=== PATIENT | male | born 1980 | race Caucasian/White ===

== ENCOUNTER 2016-11-29 18:21 | Emergency (ER) | payer BC ==
[2016-11-29 18:27] VITALS: BP 124/86; PULSE 83; RESP 18; TEMP 97.8
[2016-11-29] MEDS ORDERED: ORPHENADRINE 30 MG/ML 2 ML VIAL IM STA (18:56)
[2016-11-29] MEDS ORDERED: KETOROLAC 60 MG/2 ML VIAL IM STA (18:56)
--- NOTE | 2016-11-29 19:07 | ED ---
General Adult HPI - General Chief complaint: Back Pain/Injury Stated complaint: Back Pain, back spasms Time Seen by Provider: 11/29/16 18:50 Source: patient, RN notes reviewed Mode of arrival: ambulatory Limitations: no limitations - History of Present Illness Initial comments: 36 -year-old male presents to the emergency department with a chief complaint Back pain. Patient states he has a history of back pain. Patient states that once a year spasm. It will become tight when he is walking. Patient denies any falls traumas or injuries. Patient states his doctor, get some cortisone injection and feels better. Patient was concerned due to his symptoms without that he should be evaluated. There has been no other symptoms in the patient. Patient denies any loss of bowel or bladder function. Patient states much like his typical back spasm.Patient denies any recent fever, chills, shortness of breath, chest pain, abdominal pain, nausea vomiting, numbness or tingling, dysuria or hematuria, constipation or diarrhea, headaches or visual changes, or any other current symptoms. - Related Data Previous Rx's Medication Instructions Recorded Ibuprofen [Motrin] 600 mg PO Q6HR PRN #20 tab 11/29/16 Orphenadrine [Norflex] 100 mg PO Q12H #10 tablet.er 11/29/16 Allergies Allergy/AdvReac Type Severity Reaction Status Date / Time No Known Allergies Allergy Verified 11/29/16 18:33 Review of Systems ROS Statement: Those systems with pertinent positive or pertinent negative responses have been documented in the HPI. ROS Other: All systems not noted in ROS Statement are negative. Past Medical History Past Medical History: No Reported History History of Any Multi-Drug Resistant Organisms: None Reported Past Surgical History: Orthopedic Surgery Past Psychological History: No Psychological Hx Reported Smoking Status: Current every day smoker Past Alcohol Use History: Occasional Past Drug Use History: None Reported General Exam Limitations: no limitations General appearance: alert, in no apparent distress ENT exam: Present: normal exam, mucous membranes moist Respiratory exam: Present: normal lung sounds bilaterally. Absent: respiratory distress, wheezes, rales, rhonchi, stridor Cardiovascular Exam: Present: regular rate, normal rhythm, normal heart sounds. Absent: systolic murmur, diastolic murmur, rubs, gallop, clicks Extremities exam: Present: normal inspection, full ROM, normal capillary refill. Absent: tenderness, pedal edema, joint swelling, calf tenderness Back exam: Present: normal inspection, full ROM, muscle spasm (paraspinal). Absent: tenderness Neurological exam: Present: alert, oriented X3, reflexes normal. Absent: motor sensory deficit Psychiatric exam: Present: normal affect, normal mood Skin exam: Present: warm, dry, intact, normal color. Absent: rash Course Vital Signs 11/29/16 18:24 Temperature 97.8 F Pulse Rate 83 Respiratory 18 Rate Blood Pressure 124/86 O2 Sat by Pulse 97 Oximetry Medical Decision Making - Medical Decision Making 36-year-old male presents to the emergency department with a chief complaint of lumbar strain. This was a patient on muscle relaxers and anti-inflammatories for home. Discussed follow-up with his doctor. Discussed return parameters all his questions. He stated the Meng is given plan. All questions have been answered. He will be discharged. Disposition Clinical Impression: Lumbar strain Disposition: HOME SELF-CARE Condition: Stable Instructions: Low Back Strain (ED), Lower Back Exercises (ED) Additional Instructions: Please use medication as discussed. Please follow up with family doctor if symptoms have not improved over the next two days. Please return to the emergency room if your symptoms increase or worsen or for any other concerns. Prescriptions: Ibuprofen [Motrin] 600 mg PO Q6HR PRN #20 tab PRN Reason: Pain Orphenadrine [Norflex] 100 mg PO Q12H #10 tablet.er Referrals: Teodora Mendoza MD [STAFF PHYSICIAN] - 1-2 days Time of Disposition: 19:06
== END 2016-11-29 19:25 | disposition home or self-care (01) ==
LOC: EC 18:21
DX: S39.012A Strain of muscle, fascia and tendon of lower back, initial encounter (principal); F17.200 Nicotine dependence, unspecified, uncomplicated
CPT/HCPCS: 99283; 96372 ×2; J2360; J1885

== ENCOUNTER 2017-07-01 21:51 | Emergency (ER) | payer BC, OTHER ==
[2017-07-01 22:02] VITALS: RESP 18
[2017-07-01] MEDS ORDERED: diphenhydrAMINE 50 MG/ML 1 ML VIAL IVP STA (22:43)
[2017-07-01] MEDS ORDERED: SODIUM CHLORIDE 0.9% 1,000 ML IV STA ×2 (22:43→22:44)
[2017-07-01] MEDS ORDERED: RX INFO: IV CONTRAST WAS GIVEN 1 EACH MISC MISCELLANE PRN (22:43)
[2017-07-01] MEDS ORDERED: METOCLOPRAMIDE 5 MG/ML 2 ML VIAL IVP STA (22:43)
[2017-07-01 22:55] LABS: Basophils % (A) 0 %; Eosinophils # (A) 0.2 k/uL (0-0.7); Eosinophils % (A) 2 %; HCT 47.1 % (39.0-53.0); HGB 16.4 gm/dL (13.0-17.5); Lymphocytes # (A) 4.1 k/uL (1.0-4.8); Lymphocytes % (A) 48 %; MCH 30.6 pg (25.0-35.0); MCHC 34.9 g/dL (31.0-37.0); MCV 87.7 fL (80.0-100.0); Mean Platelet Volume 7.5; Monocytes # (A) 0.5 k/uL (0-1.0); Monocytes % (A) 6 %; Neutrophils # (A) 3.8 k/uL (1.3-7.7); Neutrophils % (A) 43 %; Platelet Count 423 k/uL (150-450); RBC 5.36 m/uL (4.30-5.90); RDW 12.8 % (11.5-15.5); WBC 8.7 k/uL (3.8-10.6)
[2017-07-01 23:03] LABS: Partial Thromboplastin Time 25.4 sec (22.0-30.0)
[2017-07-01 23:04] LABS: ALT 46 U/L (21-72); AST 27 U/L (17-59); Albumin 3.8 g/dL (3.5-5.0); Alkaline Phosphatase 56 U/L (38-126); Anion Gap 13 mmol/L; Blood Urea Nitrogen 14 mg/dL (9-20); Calcium 9.1 mg/dL (8.4-10.2); Carbon Dioxide 22 mmol/L (22-30); Chloride 103 mmol/L (98-107); Glucose 118 mg/dL (74-99); Magnesium 1.8 mg/dL (1.6-2.3); Potassium 4.4 mmol/L (3.5-5.1); Sodium 138 mmol/L (137-145); Total Bilirubin 0.3 mg/dL (0.2-1.3); Total Protein 6.2 g/dL (6.3-8.2)
--- NOTE | 2017-07-01 23:04 | XR ---
EXAMINATION TYPE: XR chest 2V DATE OF EXAM: 07/01/2017 COMPARISON: NONE HISTORY: Headache TECHNIQUE: Frontal and lateral views of the chest are obtained. FINDINGS: Heart and mediastinum are normal. Lungs are clear. Diaphragm is normal. Bony thorax is int act. IMPRESSION: Normal chest.
--- NOTE | 2017-07-01 23:18 | CT ---
EXAMINATION TYPE: CT angio head DATE OF EXAM: 07/01/2017 11:09 PM COMPARISON: NONE HISTORY: Headache CT DLP: 1305.50 mGycm Automated exposure control for dose reduction was used. TECHNIQUE: Performed with IV Contrast, patient injected with 100 mL of Isovue 370. There are 3-D post processed images.. FINDINGS: There is arterial flow in the anterior middle and posterior cerebral arteries. There is arterial flow in the vertebrobasilar artery system. The vertebral arteries are symmetric. I see no evidence of ane urysm or neovascularity. There is no evidence of spasm. There is no mass effect. IMPRESSION: NORMAL CT ANGIOGRAM OF THE BRAIN.
[2017-07-01 23:26] LABS: Creatine Kinase 72 U/L (55-170)
[2017-07-01 23:39] LABS: Creatine Kinase MB 0.9 ng/mL (0.0-2.4); Troponin I <0.012 ng/mL (0.000-0.034)
[2017-07-01] MEDS ORDERED: KETOROLAC 30 MG/ML 1 ML VIAL IVP STA (23:51)
[2017-07-01] MEDS ORDERED: LORazepam 2 MG/ML INJ IV STA (23:52)
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
[2017-07-02 00:08] VITALS: BP 130/93; PULSE 87
[2017-07-02 00:20] LABS: Appearance,Urine Clear (Clear); Bilirubin,Urine Negative (Negative); Blood,Urine Negative (Negative); Color,Urine Yellow; Glucose,Urine (UA) Negative (Negative); Ketones,Urine Negative (Negative); Leukocyte Esterase,Urine Negative (Negative); Nitrite,Urine Negative (Negative); PH, Urine 5.5 (5.0-8.0); Protein,Urine Negative (Negative); Urobilinogen,Urine <2.0 mg/dL (<2.0)
[2017-07-02 00:23] VITALS: TEMP 98
[2017-07-02 00:29] LABS: Amphetamine Screen,Urine Not Detected (NotDetected); Barbiturate Screen,Urine Not Detected (NotDetected); Benzodiazepines Screen,Urine Not Detected (NotDetected); Cocaine Screen,Urine Not Detected (NotDetected); Methadone Screen, Urine Not Detected (NotDetected); Opiate Screen,Urine Not Detected (NotDetected); Oxycodone Screen, Urine Not Detected (NotDetected); Phencyclidine Screen,Urine Not Detected (NotDetected); Tricyclic Antidepressant,Urine Not Detected (NotDetected); Urn Cannabinoid Scrn Not Detected (NotDetected)
[2017-07-02 00:36] LABS: Specific Gravity,Urine >1.050 (1.001-1.035)
== END 2017-07-02 00:27 | disposition home or self-care (01) ==
LOC: EC 21:51
DX: R51 Headache (principal); I10 Essential (primary) hypertension; F17.200 Nicotine dependence, unspecified, uncomplicated
CPT/HCPCS: 99285 ×2; 96374 ×2; 96375 ×4; 96361 ×2; 36415; 93005; 80053; 82550; 82553; 83735; 84484; 85025; 85610; 85730; 81003; 80306; 71046; 70496; J2060; J1200; J2765; J1885; Q9967

== ENCOUNTER 2017-12-02 13:18 | Emergency (ER) | payer OTHER ==
[2017-12-02 13:46] VITALS: TEMP 98.2
[2017-12-02] MEDS ORDERED: ORPHENADRINE 30 MG/ML 2 ML VIAL IM STA (14:28)
[2017-12-02] MEDS ORDERED: KETOROLAC 60 MG/2 ML VIAL IM STA (14:28)
--- NOTE | 2017-12-02 14:42 | ED ---
Back Pain HPI - General Chief Complaint: Back Pain/Injury Stated Complaint: back pain Time Seen by Provider: 12/02/17 13:54 Source: patient, RN notes reviewed, old records reviewed Limitations: no limitations - History of Present Illness Initial Comments: Patient is a 37 year old male with CC of R shoulder muscle spasm and back pain today, and history of lumbar back spasm yesterday. He reports that he has been taking ibuprofen with heat with little relief of the pain. 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 He reports no saddle or peripheral paresthesias. No falls or trauma to cause pain. Denies history of twisting or one movment to cause the pain. He has had back spasm before. - Related Data Home Medications Medication Instructions Recorded Confirmed Flexeril Unknown Dose 1 tab PO DAILY PRN 12/02/17 12/02/17 Previous Rx's Medication Instructions Recorded Cyclobenzaprine [Flexeril] 10 mg PO TID #20 tab 12/02/17 Dexamethasone 0.75 mg PO DAILY #12 tab 12/02/17 Ibuprofen 600 mg PO TID #20 tablet 12/02/17 Lidocaine 5% Patch [Lidoderm 5% 1 patch TOPICAL DAILY #10 patch 12/02/17 Patch] Allergies Allergy/AdvReac Type Severity Reaction Status Date / Time No Known Allergies Allergy Verified 12/02/17 14:11 Review of Systems ROS Statement: Those systems with pertinent positive or pertinent negative responses have been documented in the HPI. ROS Other: All systems not noted in ROS Statement are negative. Past Medical History Past Medical History: Hypertension History of Any Multi-Drug Resistant Organisms: None Reported Past Surgical History: Orthopedic Surgery Past Psychological History: No Psychological Hx Reported Smoking Status: Current every day smoker Past Alcohol Use History: Occasional Past Drug Use History: None Reported General Exam - General Exam Comments Initial Comments: Well appearing 37 year old male, no distress. Limitations: no limitations General appearance: alert, in no apparent distress Head exam: Present: atraumatic, normocephalic, normal inspection Eye exam: Present: normal appearance, PERRL, EOMI. Absent: scleral icterus, conjunctival injection, periorbital swelling ENT exam: Present: normal exam, mucous membranes moist Neck exam: Present: normal inspection. Absent: tenderness, meningismus, lymphadenopathy Cardiovascular Exam: Present: regular rate, normal rhythm, normal heart sounds. Absent: systolic murmur, diastolic murmur, rubs, gallop, clicks GI/Abdominal exam: Present: soft, normal bowel sounds. Absent: distended, tenderness, guarding, rebound, rigid Extremities exam: Present: normal inspection, full ROM, normal capillary refill. Absent: tenderness, pedal edema, joint swelling, calf tenderness Back exam: Present: normal inspection, muscle spasm (R cervical and trapezius muscle spasm) Neurological exam: Present: alert, oriented X3, CN II-XII intact Psychiatric exam: Present: normal affect, normal mood Skin exam: Present: warm, dry, intact, normal color. Absent: rash Course Vital Signs 12/02/17 12/02/17 13:44 15:23 Temperature 98.2 F Pulse Rate 99 104 H Respiratory 20 18 Rate Blood Pressure 124/78 128/40 O2 Sat by Pulse 98 99 Oximetry Medical Decision Making - Medical Decision Making 37 year old male with R neck and back muscle spasm and recent history of lumbar back pain presents to ED today for pain relief. He appears in no acute distress. Denies paresthesia. Patient is tender over cervical R paraspinal muscle and trapezius. Patient has no lumbar pain at this time, but reports it was severe a few days ago. At this time lumbar and cervical spine Xray are negative for fracture or significant disease. Patient given IM toradol, nofrlex. Discussed ibupprofen, lidocaine patch. Discussed close follow up with PCP and orthopedic if symptoms persist. Dsicussed return parameters. - Radiology Data Radiology results: report reviewed Lumbar spine x-rays negative for any acute process. Cervical spine satisfactorily without a fracture. Prevertebral soft tissue. C1 -C2 articulation slightly suboptimal due to overlap. Overlying soft tissue is unremarkable. Disposition Clinical Impression: Back spasm Disposition: HOME SELF-CARE Condition: Good Instructions: Muscle Spasm (ED) Additional Instructions: Patient has follow with primary care physician. Lisa alternate heat and ice. Take the muscle relaxers and steroid prescription to telemetry medicine as prescribed. Return to emergency department if any alarming signs or symptoms occur. Prescriptions: Cyclobenzaprine [Flexeril] 10 mg PO TID #20 tab Dexamethasone 0.75 mg PO DAILY #12 tab Ibuprofen 600 mg PO TID #20 tablet Lidocaine 5% Patch [Lidoderm 5% Patch] 1 patch TOPICAL DAILY #10 patch Is patient prescribed a controlled substance at d/c from ED?: No Referrals: None,Stated [Primary Care Provider] - 1-2 days Agnieszka Tello MD [STAFF PHYSICIAN] - 1-2 days Time of Disposition: 15:06
--- NOTE | 2017-12-02 14:55 | XR ---
EXAMINATION TYPE: XR lumbar spine 2 or 3V DATE OF EXAM: 12/02/2017 CLINICAL HISTORY: Low back pain TECHNIQUE: Frontal and lateral images of the lumbar spine are obtained. COMPARISON: None FINDINGS: There are 5 lumbar type vertebral bodies identified. The lumbar spine shows satisfactory alignment without evidence of acute fracture or dislocation. Vertebral body heights and disk space he ights are within normal limits. The overlying soft tissue appears unremarkable. IMPRESSION: Unremarkable study.
--- NOTE | 2017-12-02 15:02 | XR ---
EXAMINATION TYPE: XR cervical spine limited DATE OF EXAM: 12/02/2017 TECHNIQUE: Frontal, lateral, and open mouth view of the cervical spine are obtained. HISTORY: Pain COMPARISON: None FINDINGS: The cervical spine is visualized in its entirety from C1 thru the top of T1 level, it is s atisfactory in alignment without evidence of acute fracture or dislocation. The pre-vertebral soft t issue appears within normal limits. The C1-C2 articulation is slightly suboptimally evaluated due to teeth overlap but is likely within normal limits. Vertebral body heights and disc space heights are maintained. Overlying soft tissue is unremarkable. IMPRESSION: Fairly unremarkable study.
[2017-12-02 15:24] VITALS: BP 128/40; PULSE 104; RESP 18
== END 2017-12-02 15:24 | disposition home or self-care (01) ==
LOC: EC 13:18
DX: M62.830 Muscle spasm of back (principal); F17.200 Nicotine dependence, unspecified, uncomplicated
CPT/HCPCS: 99284; 96372 ×2; 72040; 72100; J2360; J1885; 99283

== ENCOUNTER 2018-10-01 18:14 | Emergency (ER) | payer OTHER ==
[2018-10-01 18:24] VITALS: RESP 16; TEMP 98.2
[2018-10-01] MEDS ORDERED: SODIUM CHLORIDE 0.9% 1,000 ML IV STA (18:46)
--- NOTE | 2018-10-01 18:59 | ED ---
General Adult HPI - General Chief complaint: Abdominal Pain Stated complaint: Groin pain Time Seen by Provider: 10/01/18 18:28 Source: patient, family, RN notes reviewed Mode of arrival: ambulatory Limitations: no limitations - History of Present Illness Initial comments: 38-year-old male presents to the emergency department for a chief complaint of testicular pain. Patient states he has had left testicular pain for about a month. States it is very tender to the touch. Denies dysuria. Denies pus. Patient states he has sharp pain radiating up from the left testicle to the left lower abdomen. States he thinks the upper left side of his abdomen may be somewhat bloated. States he noticed this yesterday but denies any pain in that area. Denies fevers or chills. Denies vomiting. States he is passing normal bowel movements.Patient has no other complaints at this time including shortness of breath, chest pain, nausea or vomiting, headache, or visual changes. - Related Data Home Medications Medication Instructions Recorded Confirmed Omeprazole 20 mg PO DAILY 10/01/18 10/01/18 Previous Rx's Medication Instructions Recorded Levofloxacin [Levaquin] 500 mg PO DAILY #10 tab 10/01/18 Allergies Allergy/AdvReac Type Severity Reaction Status Date / Time bee venom protein (honey bee) Allergy Swelling Verified 10/01/18 18:24 Review of Systems ROS Statement: Those systems with pertinent positive or pertinent negative responses have been documented in the HPI. ROS Other: All systems not noted in ROS Statement are negative. Past Medical History Past Medical History: Hypertension History of Any Multi-Drug Resistant Organisms: None Reported Past Surgical History: Orthopedic Surgery Past Psychological History: No Psychological Hx Reported Smoking Status: Current every day smoker Past Alcohol Use History: Occasional Past Drug Use History: None Reported General Exam Limitations: no limitations General appearance: alert, in no apparent distress Head exam: Present: atraumatic, normocephalic, normal inspection Eye exam: Present: normal appearance, PERRL, EOMI. Absent: scleral icterus, conjunctival injection, periorbital swelling ENT exam: Present: normal exam, mucous membranes moist Neck exam: Present: normal inspection, full ROM. Absent: tenderness, meningismus, lymphadenopathy Respiratory exam: Present: normal lung sounds bilaterally. Absent: respiratory distress, wheezes, rales, rhonchi, stridor Cardiovascular Exam: Present: regular rate, normal rhythm, normal heart sounds. Absent: systolic murmur, diastolic murmur, rubs, gallop, clicks GI/Abdominal exam: Present: soft, normal bowel sounds. Absent: distended, ten derness (no signficiant tenderness noted of the abdomen), guarding, rebound, rigid exam: Present: testicular tenderness (left testicular tenderness without edema or erythema), other (Nurys RN present as foam gun operator for exam). Absent: normal inspection, urethral discharge, scrotal swelling, vertical testicular lie Neurological exam: Present: alert, oriented X3, CN II-XII intact Psychiatric exam: Present: normal affect, normal mood Course Vital Signs 10/01/18 18:21 Temperature 98.2 F Pulse Rate 102 H Respiratory 16 Rate Blood Pressure 142/92 O2 Sat by Pulse 97 Oximetry Medical Decision Making - Medical Decision Making Raul is a 38-year-old male who presents to the emergency room for a chief compl aint of left testicle pain times one month and left lower quadrant pain 3 days. He states he is unsure if they're related. Denies nausea vomiting diarrhea. On exam patient does have pain and tenderness to the left testicle however no erythema or edema. Abdomen is soft however patient does have some mild left lower quadrant tenderness. No guarding. CBC and CMP are unremarkable. Lactic acid 2.1, likely secondary to dehydration. Urine is negative. Ultrasound of the testicle shows possible epididymitis. CT abdomen and pelvis was obtained due to concern for diverticulitis. There is possible enteritis noted as there is mild colonic wall thickening which is indeterminate. He is also a possibly small left inguinal hernia. Patient does not have any tenderness noted in the inguinal canal or any edema. Patient symptoms be related to epididymitis. Patient will be started on antibiotics appropriate for this. He will follow up with urology. Patient has an appointment with his primary care provider in 2 days he will speak to them at that time about possible inguinal hernia. He will return if he has any worsening symptoms. - Lab Data Result diagrams: 10/01/18 18:45 10/01/18 18:45 Lab Results 10/01/18 10/01/18 10/01/18 Range/Units 18:45 18:45 18:45 WBC 6.7 (3.8-10.6) k/uL RBC 5.25 (4.30-5.90) m/uL Hgb 15.9 (13.0-17.5) gm/dL Hct 47.6 (39.0-53.0) % MCV 90.6 (80.0-100.0) fL MCH 30.3 (25.0-35.0) pg MCHC 33.5 (31.0-37.0) g/dL RDW 13.1 (11.5-15.5) % Plt Count 346 (150-450) k/uL Neutrophils % 50 % Lymphocytes % 40 % Monocytes % 6 % Eosinophils % 2 % Basophils % 0 % Neutrophils # 3.3 (1.3-7.7) k/uL Lymphocytes # 2.7 (1.0-4.8) k/uL Monocytes # 0.4 (0-1.0) k/uL Eosinophils # 0.2 (0-0.7) k/uL Basophils # 0.0 (0-0.2) k/uL Sodium 140 (137-145) mmol/L Potassium 4.0 (3.5-5.1) mmol/L Chloride 103 (98-107) mmol/L Carbon Dioxide 25 (22-30) mmol/L Anion Gap 12 mmol/L BUN 14 (9-20) mg/dL Creatinine 0.90 (0.66-1.25) mg/dL Est GFR (CKD-EPI)AfAm >90 (>60 ml/min/1.73 sqM) Est GFR (CKD-EPI)NonAf >90 (>60 ml/min/1.73 sqM) Glucose 115 H (74-99) mg/dL Lactic Ac Sepsis Rflx Plasma Lactic Acid Humberto (0.7-2.0) mmol/L Calcium 9.4 (8.4-10.2) mg/dL Total Bilirubin 0.5 (0.2-1.3) mg/dL AST 31 (17-59) U/L ALT 28 (21-72) U/L Alkaline Phosphatase 64 (38-126) U/L Total Protein 7.1 (6.3-8.2) g/dL Albumin 4.3 (3.5-5.0) g/dL Amylase 95 (30-110) U/L Lipase 148 (23-300) U/L Urine Color Light Yellow Urine Appearance Clear (Clear) Urine pH 5.5 (5.0-8.0) Ur Specific [place] 1.007 (1.001-1.035) Urine Protein Negative (Negative) Urine Glucose (UA) Negative (Negative) Urine Ketones Negative (Negative) Urine Blood Negative (Negative) Urine Nitrite Negative (Negative) Urine Bilirubin Negative (Negative) Urine Urobilinogen <2.0 (<2.0) mg/dL Ur Leukocyte Esterase Negative (Negative) 10/01/18 10/01/18 Range/Units 18:45 19:16 WBC (3.8-10.6) k/uL RBC (4.30-5.90) m/uL Hgb (13.0-17.5) gm/dL Hct (39.0-53.0) % MCV (80.0-100.0) fL MCH (25.0-35.0) pg MCHC (31.0-37.0) g/dL RDW (11.5-15.5) % Plt Count (150-450) k/uL Neutrophils % % Lymphocytes % % Monocytes % % Eosinophils % % Basophils % % Neutrophils # (1.3-7.7) k/uL Lymphocytes # (1.0-4.8) k/uL Monocytes # (0-1.0) k/uL Eosinophils # (0-0.7) k/uL Basophils # (0-0.2) k/uL Sodium (137-145) mmol/L Potassium (3.5-5.1) mmol/L Chloride (98-107) mmol/L Carbon Dioxide (22-30) mmol/L Anion Gap mmol/L BUN (9-20) mg/dL Creatinine (0.66-1.25) mg/dL Est GFR (CKD-EPI)AfAm (>60 ml/min/1.73 sqM) Est GFR (CKD-EPI)NonAf (>60 ml/min/1.73 sqM) Glucose (74-99) mg/dL Lactic Ac Sepsis Rflx Y Plasma Lactic Acid Humberto 2.1 H* (0.7-2.0) mmol/L Calcium (8.4-10.2) mg/dL Total Bilirubin (0.2-1.3) mg/dL AST (17-59) U/L ALT (21-72) U/L Alkaline Phosphatase (38-126) U/L Total Protein (6.3-8.2) g/dL Albumin (3.5-5.0) g/dL Amylase (30-110) U/L Lipase (23-300) U/L Urine Color Urine Appearance (Clear) Urine pH (5.0-8.0) Ur Specific [place] (1.001-1.035) Urine Protein (Negative) Urine Glucose (UA) (Negative) Urine Ketones (Negative) Urine Blood (Negative) Urine Nitrite (Negative) Urine Bilirubin (Negative) Urine Urobilinogen (<2.0) mg/dL Ur Leukocyte Esterase (Negative) Disposition Clinical Impression: Testicle pain, Epididymitis, left, Inguinal hernia Disposition: HOME SELF-CARE Condition: Good Instructions (If sedation given, give patient instructions): Epididymitis (ED), Testicle Pain (ED), Inguinal Hernia (ED) Additional Instructions: Please take Ativan as directed. Please follow-up with urology in 1-2 days. Follow-up at your primary care appointment on Saturday. Return to the emergency department if you have any worsening symptoms. Prescriptions: Levofloxacin [Levaquin] 500 mg PO DAILY #10 tab Is patient prescribed a controlled substance at d/c from ED?: No Referrals: Ruddy Lara MD [STAFF PHYSICIAN] - 1-2 days Time of Disposition: 22:40
[2018-10-01 19:10] LABS: Basophils % (A) 0 %; Eosinophils # (A) 0.2 k/uL (0-0.7); Eosinophils % (A) 2 %; HCT 47.6 % (39.0-53.0); HGB 15.9 gm/dL (13.0-17.5); Lymphocytes # (A) 2.7 k/uL (1.0-4.8); Lymphocytes % (A) 40 %; MCH 30.3 pg (25.0-35.0); MCHC 33.5 g/dL (31.0-37.0); MCV 90.6 fL (80.0-100.0); Mean Platelet Volume 6.8; Monocytes # (A) 0.4 k/uL (0-1.0); Monocytes % (A) 6 %; Neutrophils # (A) 3.3 k/uL (1.3-7.7); Neutrophils % (A) 50 %; Platelet Count 346 k/uL (150-450); RBC 5.25 m/uL (4.30-5.90); RDW 13.1 % (11.5-15.5); WBC 6.7 k/uL (3.8-10.6)
[2018-10-01 19:14] LABS: Appearance,Urine Clear (Clear); Bilirubin,Urine Negative (Negative); Blood,Urine Negative (Negative); Color,Urine Light Yellow; Glucose,Urine (UA) Negative (Negative); Ketones,Urine Negative (Negative); Leukocyte Esterase,Urine Negative (Negative); Nitrite,Urine Negative (Negative); PH, Urine 5.5 (5.0-8.0); Protein,Urine Negative (Negative); Specific Gravity,Urine 1.007 (1.001-1.035); Urobilinogen,Urine <2.0 mg/dL (<2.0)
[2018-10-01 19:15] LABS: ALT 28 U/L (21-72); AST 31 U/L (17-59); African American GFR (CKD) >90 (>60 ml/min/1.73 sqM); Albumin 4.3 g/dL (3.5-5.0); Alkaline Phosphatase 64 U/L (38-126); Amylase 95 U/L (30-110); Anion Gap 12 mmol/L; Blood Urea Nitrogen 14 mg/dL (9-20); Calcium 9.4 mg/dL (8.4-10.2); Carbon Dioxide 25 mmol/L (22-30); Chloride 103 mmol/L (98-107); Glucose 115 mg/dL (74-99); Lipase 148 U/L (23-300); Sodium 140 mmol/L (137-145); Total Bilirubin 0.5 mg/dL (0.2-1.3); Total Protein 7.1 g/dL (6.3-8.2)
--- NOTE | 2018-10-01 20:43 | US ---
EXAMINATION TYPE: US scrotum with doppler. Grayscale and color Doppler Duplex imaging performed of mehul lozano scrotum. DATE OF EXAM: 10/01/2018 COMPARISON: NONE CLINICAL HISTORY: Pain. Pain left testicle x 1 month. Patient states the pain is toward the upper por tion of left testicle. EXAM MEASUREMENTS: TESTICLES: Right Testicle: 4.6 x 3.5 x 3.1 cm Left Testicle: 4.6 x 2.9 x 3.0 cm EPIDIDYMIS HEAD: Right Epididymis: 1.2 x 1.1 x 1.1 cm Left Epididymis: 1.5 x 1.5 x 0.9 cm Doppler performed to assess for testicular vascularity; arterial and venous waveforms, color flow not ed to both testes Presence of hydroceles: no Presence of varicoceles: no Left epididymal head appears heterogeneous. Heterogeneous area with vascularity lateral to left testicle. ?Inflamed body of epididymis? Testicular echotexture is homogenous and symmetric IMPRESSION: Correlate for possible epididymitis, follow-up as indicated
--- NOTE | 2018-10-01 21:55 | CT ---
EXAMINATION TYPE: CT abdomen pelvis w con DATE OF EXAM: 10/01/2018 COMPARISON: None HISTORY: left sided abdominal and groin pain CT DLP: 999.1 mGycm Automated exposure control for dose reduction was used. TECHNIQUE: Helical acquisition of images from the lung bases through the pelvis have been completed. CONTRAST: Performed without Oral Contrast and with IV Contrast, patient injected with 100 mL of Isovue 300. FINDINGS: There is mild asymmetry along the inguinal canal, slight increase that noted on the left, s uspect a small hernia present as compared to the right LUNG BASES: No significant abnormality is appreciated. AORTA: No significant abnormality is appreciated. LIVER/GB: No significant abnormality is appreciated. Gallbladder is contracted. PANCREAS: No significant abnormality is seen. SPLEEN: No significant abnormality is seen. ADRENALS: No significant abnormality is seen. KIDNEYS: No significant abnormality is seen. REPRODUCTIVE ORGANS: No significant abnormality is seen BOWEL: Mild colonic wall thickening in the sigmoid region is indeterminate and could be due to muscu lar hypertrophy or lack of distention. Small bowel shows wall thickening in the jejunal region. FREE AIR: No Free Air visible. ASCITES: None visible. PELVIC ADENOPATHY: None visualized. RETROPERITONEAL ADENOPATHY: No Retroperitoneal Adenopathy visible. URINARY BLADDER: No significant abnormality is seen. OSSEOUS STRUCTURES: No significant abnormality is seen. IMPRESSION: CORRELATE FOR POSSIBLE ENTERITIS. CORRELATE FOR LEFT INGUINAL HERNIA. Findings in the colon is descri bed are indeterminate.
[2018-10-01] MEDS ORDERED: cefTRIAXone 250 MG VIAL IM STA (22:18)
[2018-10-01] MEDS ORDERED: LEVOFLOXACIN 500 MG TAB PO STA (22:18)
[2018-10-01 23:03] VITALS: BP 140/82; PULSE 80
[2018-10-02 13:37] LABS: C. trachomatis,PCR Negative (Neg,Equiv); Chlamydia trachomatis Source Urine; N. gonorrhoeae,PCR Negative (Neg,Equiv); Neisseria Source Urine
== END 2018-10-01 23:03 | disposition home or self-care (01) ==
LOC: EC 18:14
DX: N45.1 Epididymitis (principal); K40.90 Unilateral inguinal hernia, without obstruction or gangrene, not specified as recurrent; F17.200 Nicotine dependence, unspecified, uncomplicated; Z79.899 Other long term (current) drug therapy; Z91.030 Bee allergy status
CPT/HCPCS: 36415; 80053; 82150; 83605; 83690; 85025; 81003; 87491; 87591; 93975; 76870; 74177; 99284; 96360; 96372; J0696; Q9967

== ENCOUNTER 2019-11-04 15:04 | Emergency (ER) | payer OTHER ==
[2019-11-04 15:09] VITALS: BP 128/87; PULSE 107; RESP 18; TEMP 97.7
--- NOTE | 2019-11-04 15:25 | ED ---
General Adult HPI - General Chief complaint: Urogenital Stated complaint: Male Time Seen by Provider: 11/04/19 15:12 Source: patient Mode of arrival: ambulatory Limitations: no limitations - History of Present Illness Initial comments: Dictation was produced using [employer] dictation software. please excuse any grammatical, word or spelling errors. This patient was cared for during a federal and state declared state of emergency secondary to Covid 19 Chief Complaint: Patient is a 39-year-old male past medical history of left inguinal hernia and urinary tract infection presents with testicular pain History of Present Illness: 39-year-old male. Story begins approximately 1 year ago. States that his testicle has been suspended in his pelvis and not in his scrotum. He states that this occurred 1 year ago. Patient states that his testicle has been the same position for approximately one year. One year ago he was seen here in emergency department where he had a computed tomography scan and a scrotal ultrasound. At that time he was told that he had a left inguinal hernia and epididymitis. Was put on a course of antibiotics. At that time his symptoms improved. Over the last several days his pain has been increasing. He also feels fever and chills. He was given a referral to outpatient urology however is never followed to his appointment. Patient denies any nausea vomiting. Denies any abdominal pain. No diarrhea. Does report urinary hesitancy. The ROS documented in this emergency department record has been reviewed and confirmed by me. Those systems with pertinent positive or negative responses have been documented in the HPI. All other systems are other negative and/or noncontributory. PHYSICAL EXAM: General Impression: Alert and oriented x3, not in acute distress HEENT: Normocephalic atraumatic, extra-ocular movements intact, pupils equal and reactive to light bilaterally, mucous membranes moist. Cardiovascular: Heart regular rate and rhythm Chest: Able to complete full sentences, no retractions, no tachypnea Abdomen: abdomen soft, non-tender, non-distended, no organomegaly Musculoskeletal: Pulses present and equal in all extremities, no peripheral edema Motor: no focal deficits noted Neurological: CN II-XII grossly intact, no focal motor or sensory deficits noted Skin: Intact with no visualized rashes : Elevated left testicle, no skin changes over the left testicle. Psych: Normal affect and mood ED course: 39-year-old male's with constitutional symptoms and left testicular pain. Chart review was performed. Patient has history of epididymitis and possible left-sided inguinal hernia. She has been having constitutional symptoms and some urinary hesitancy.Case was discussed with Dr. Meza who is on-call for urology had no recommendations at this time however he does recommend that patient follow up with outpatient urology clinic.Post void residual was 20.Urinalysis is unremarkable. Discussed plan with patient. Patient is advised follow-up with urology. He is told that he may need outpatient surgery for treatment of his testicle. - Related Data Home Medications Medication Instructions Recorded Confirmed Ibuprofen [Motrin Ib] 800 mg PO BID PRN 11/04/19 11/04/19 Omeprazole Magnesium [PriLOSEC OTC] 20 mg PO DAILY 11/04/19 11/04/19 Allergies Allergy/AdvReac Type Severity Reaction Status Date / Time bee venom protein (honey bee) Allergy Swelling Verified 11/04/19 15:52 Fish Containing Products Allergy Swelling Verified 11/04/19 15:52 Review of Systems ROS Statement: Those systems with pertinent positive or pertinent negative responses have been documented in the HPI. ROS Other: All systems not noted in ROS Statement are negative. Past Medical History Past Medical History: Hypertension History of Any Multi-Drug Resistant Organisms: None Reported Past Surgical History: Orthopedic Surgery Past Psychological History: Anxiety Smoking Status: Current every day smoker Past Alcohol Use History: None Reported, Occasional Past Drug Use History: None Reported General Exam Limitations: no limitations Course Vital Signs 11/04/19 15:06 Temperature 97.7 F Pulse Rate 107 H Respiratory 18 Rate Blood Pressure 128/87 O2 Sat by Pulse 100 Oximetry Medical Decision Making - Lab Data Result diagrams: 11/04/19 15:38 11/04/19 15:38 Lab Results 11/04/19 11/04/19 11/04/19 Range/Units 15:38 15:38 15:38 WBC 8.2 (3.8-10.6) k/uL RBC 5.98 H (4.30-5.90) m/uL Hgb 18.1 H (13.0-17.5) gm/dL Hct 54.3 H (39.0-53.0) % MCV 90.7 (80.0-100.0) fL MCH 30.3 (25.0-35.0) pg MCHC 33.4 (31.0-37.0) g/dL RDW 13.1 (11.5-15.5) % Plt Count 361 (150-450) k/uL Neutrophils % 49 % Lymphocytes % 42 % Monocytes % 5 % Eosinophils % 2 % Basophils % 1 % Neutrophils # 4.0 (1.3-7.7) k/uL Lymphocytes # 3.5 (1.0-4.8) k/uL Monocytes # 0.4 (0-1.0) k/uL Eosinophils # 0.2 (0-0.7) k/uL Basophils # 0.0 (0-0.2) k/uL PT 12.0 (9.0-12.0) sec INR 1.2 H (<1.2) APTT 27.9 (22.0-30.0) sec Sodium (137-145) mmol/L Potassium (3.5-5.1) mmol/L Chloride (98-107) mmol/L Carbon Dioxide (22-30) mmol/L Anion Gap mmol/L BUN (9-20) mg/dL Creatinine (0.66-1.25) mg/dL Est GFR (CKD-EPI)AfAm (>60 ml/min/1.73 sqM) Est GFR (CKD-EPI)NonAf (>60 ml/min/1.73 sqM) Glucose (74-99) mg/dL Calcium (8.4-10.2) mg/dL Urine Color Yellow Urine Appearance Clear (Clear) Urine pH 6.0 (5.0-8.0) Ur Specific [place] 1.023 (1.001-1.035) Urine Protein Trace H (Negative) Urine Glucose (UA) Negative (Negative) Urine Ketones Negative (Negative) Urine Blood Negative (Negative) Urine Nitrite Negative (Negative) Urine Bilirubin Negative (Negative) Urine Urobilinogen <2.0 (<2.0) mg/dL Ur Leukocyte Esterase Negative (Negative) 11/04/19 Range/Units 15:38 WBC (3.8-10.6) k/uL RBC (4.30-5.90) m/uL Hgb (13.0-17.5) gm/dL Hct (39.0-53.0) % MCV (80.0-100.0) fL MCH (25.0-35.0) pg MCHC (31.0-37.0) g/dL RDW (11.5-15.5) % Plt Count (150-450) k/uL Neutrophils % % Lymphocytes % % Monocytes % % Eosinophils % % Basophils % % Neutrophils # (1.3-7.7) k/uL Lymphocytes # (1.0-4.8) k/uL Monocytes # (0-1.0) k/uL Eosinophils # (0-0.7) k/uL Basophils # (0-0.2) k/uL PT (9.0-12.0) sec INR (<1.2) APTT (22.0-30.0) sec Sodium 137 (137-145) mmol/L Potassium 5.0 (3.5-5.1) mmol/L Chloride 104 (98-107) mmol/L Carbon Dioxide 24 (22-30) mmol/L Anion Gap 9 mmol/L BUN 13 (9-20) mg/dL Creatinine 0.74 (0.66-1.25) mg/dL Est GFR (CKD-EPI)AfAm >90 (>60 ml/min/1.73 sqM) Est GFR (CKD-EPI)NonAf >90 (>60 ml/min/1.73 sqM) Glucose 97 (74-99) mg/dL Calcium 9.6 (8.4-10.2) mg/dL Urine Color Urine Appearance (Clear) Urine pH (5.0-8.0) Ur Specific [place] (1.001-1.035) Urine Protein (Negative) Urine Glucose (UA) (Negative) Urine Ketones (Negative) Urine Blood (Negative) Urine Nitrite (Negative) Urine Bilirubin (Negative) Urine Urobilinogen (<2.0) mg/dL Ur Leukocyte Esterase (Negative) Disposition Clinical Impression: Testicular pain Disposition: HOME SELF-CARE Condition: Good Instructions (If sedation given, give patient instructions): Testicle Pain (ED) Is patient prescribed a controlled substance at d/c from ED?: No Referrals: William Mccloud MD [STAFF PHYSICIAN] - 1-2 days Time of Disposition: 18:41
[2019-11-04 16:12] LABS: Basophils % (A) 1 %; Eosinophils # (A) 0.2 k/uL (0-0.7); Eosinophils % (A) 2 %; HCT 54.3 % (39.0-53.0); HGB 18.1 gm/dL (13.0-17.5); Lymphocytes # (A) 3.5 k/uL (1.0-4.8); Lymphocytes % (A) 42 %; MCH 30.3 pg (25.0-35.0); MCHC 33.4 g/dL (31.0-37.0); MCV 90.7 fL (80.0-100.0); Mean Platelet Volume 7.2; Monocytes # (A) 0.4 k/uL (0-1.0); Monocytes % (A) 5 %; Neutrophils % (A) 49 %; Platelet Count 361 k/uL (150-450); RBC 5.98 m/uL (4.30-5.90); RDW 13.1 % (11.5-15.5); WBC 8.2 k/uL (3.8-10.6)
[2019-11-04 16:22] LABS: African American GFR (CKD) >90 (>60 ml/min/1.73 sqM); Anion Gap 9 mmol/L; Blood Urea Nitrogen 13 mg/dL (9-20); Calcium 9.6 mg/dL (8.4-10.2); Carbon Dioxide 24 mmol/L (22-30); Chloride 104 mmol/L (98-107); Glucose 97 mg/dL (74-99); Non-African American GFR(CKD) >90 (>60 ml/min/1.73 sqM); Sodium 137 mmol/L (137-145)
[2019-11-04 16:31] LABS: INR 1.2 (<1.2); Partial Thromboplastin Time 27.9 sec (22.0-30.0)
--- NOTE | 2019-11-04 16:55 | US ---
EXAMINATION TYPE: US scrotum with doppler. Grayscale and color Doppler Duplex imaging performed of t blake scrotum. DATE OF EXAM: 11/04/2019 COMPARISON: NONE CLINICAL HISTORY: testicular pain. EXAM MEASUREMENTS: TESTICLES: Right Testicle: 5.0 x 2.7 x 3.3 cm Left Testicle located in the inguinal canal for one year, patient states that he has a hernia 4 .7 x 2.0 x 3.7cm EPIDIDYMIS HEAD: Right Epididymis: 1.1 cm Left Epididymis: Not visualized cm Doppler performed to assess for testicular vascularity; good bilateral color flow and waveforms are s een. There is no evidence of testicular torsion. Presence of hydroceles: no Presence of varicoceles: no IMPRESSION: Left testicle resides within the left inguinal canal with normal flow.
[2019-11-04 18:27] LABS: Appearance,Urine Clear (Clear); Bilirubin,Urine Negative (Negative); Blood,Urine Negative (Negative); Color,Urine Yellow; Glucose,Urine (UA) Negative (Negative); Ketones,Urine Negative (Negative); Leukocyte Esterase,Urine Negative (Negative); Nitrite,Urine Negative (Negative); Protein,Urine Trace (Negative); Specific Gravity,Urine 1.023 (1.001-1.035); Urobilinogen,Urine <2.0 mg/dL (<2.0)
[2019-11-04] MEDS ORDERED: ACET/COD 300 MG/30 MG STARTER PACK 6 TAB BTL PO STA (18:41)
== END 2019-11-04 19:03 | disposition home or self-care (01) ==
LOC: EC 15:04
DX: N50.812 Left testicular pain (principal); I10 Essential (primary) hypertension; F17.200 Nicotine dependence, unspecified, uncomplicated; Z79.899 Other long term (current) drug therapy; Z91.030 Bee allergy status; Z91.013 Allergy to seafood
CPT/HCPCS: 36415; 76870; 80048; 81003; 85025; 85610; 85730; 93975; 99284

== ENCOUNTER 2020-12-05 10:36 | Emergency (ER) | payer OTHER ==
--- NOTE | 2020-12-05 11:53 | ED ---
ENT HPI - General Source: patient Mode of arrival: ambulatory Limitations: no limitations <Agnieszka Hui - Last Filed: 12/05/20 11:50> - General Source: RN notes reviewed <Rolo Subramanian - Last Filed: 12/05/20 12:22> - General Chief complaint: Dental/Oral Stated complaint: Face pain/nausea/vomiting Time Seen by Provider: 12/05/20 11:50 - History of Present Illness Initial comments: Patient is a 40 yo male presenting to the emergency department with complaints of dental pain, nausea and diarrhea since last night. He states he's been treated with multiple rounds of antibiotics for dental infections, he's been to his dentist. He states last night he feels like he had pain in his left ear which then "drained down into his mouth and he felt septic." He denies any facial swelling. Patient took a home covert test 2 weeks ago and tested po sitive, he is on Zocor and he now. Denies any chest pain or shortness of breath, no fevers or chills. Denies any nausea or vomiting at this time, no fevers or chills. He has no further complaints. (Agnieszka Hui) - Related Data Home Medications Medication Instructions Recorded Confirmed Ibuprofen [Motrin Ib] 800 mg PO BID PRN 11/04/19 11/04/19 Omeprazole Magnesium [PriLOSEC OTC] 20 mg PO DAILY 11/04/19 11/04/19 Previous Rx's Medication Instructions Recorded Clindamycin HCl 300 mg PO Q6HR #40 cap 12/05/20 Allergies Allergy/AdvReac Type Severity Reaction Status Date / Time bee venom protein (honey bee) Allergy Swelling Verified 11/04/19 15:52 Fish Containing Products Allergy Swelling Verified 11/04/19 15:52 Review of Systems ROS Other: All systems not noted in ROS Statement are negative. <Agnieszka Hui - Last Filed: 12/05/20 11:50> ROS Other: All systems not noted in ROS Statement are negative. <Rolo Subramanian - Last Filed: 12/05/20 12:22> ROS Statement: Those systems with pertinent positive or pertinent negative responses have been documented in the HPI. Past Medical History Past Medical History: Hypertension History of Any Multi-Drug Resistant Organisms: None Reported Past Surgical History: Orthopedic Surgery Past Psychological History: Anxiety Smoking Status: Current every day smoker Past Alcohol Use History: None Reported, Occasional Past Drug Use History: None Reported <KorinaAgnieszka Yanna - Last Filed: 12/05/20 11:50> General Exam Limitations: no limitations General appearance: alert, in no apparent distress Head exam: Present: atraumatic Eye exam: Present: normal appearance <Agnieszka Hui - Last Filed: 12/05/20 11:50> General appearance: alert, in no apparent distress Head exam: Present: atraumatic, normocephalic, normal inspection Eye exam: Present: normal appearance, PERRL, EOMI. Absent: scleral icterus, conjunctival injection, periorbital swelling ENT exam: Present: mucous membranes moist. Absent: normal oropharynx (Poor dentition) Neck exam: Present: normal inspection, full ROM. Absent: tenderness, meningismus, lymphadenopathy Respiratory exam: Present: normal lung sounds bilaterally. Absent: respiratory distress, wheezes, rales, rhonchi, stridor Cardiovascular Exam: Present: regular rate, normal rhythm, normal heart sounds. Absent: systolic murmur, diastolic murmur, rubs, gallop, clicks Neurological exam: Present: alert, oriented X3 <Rolo Subarmanian - Last Filed: 12/05/20 12:22> Course Vital Signs 12/05/20 11:49 Temperature 97.8 F Pulse Rate 105 H Respiratory 18 Rate Blood Pressure 117/80 O2 Sat by Pulse 99 Oximetry Medical Decision Making <Rolo Subramanian - Last Filed: 12/05/20 12:22> - Medical Decision Making Patient will receive Rocephin IM injection, we discharged on clindamycin. Patient will be given on-call oral surgeon return parameters were discussed. (Rolo Subramanian) Disposition <Agnieszka Hui - Last Filed: 12/05/20 11:50> Is patient prescribed a controlled substance at d/c from ED?: No Time of Disposition: 12:22 <Rolo Subramanian - Last Filed: 12/05/20 12:22> Clinical Impression: Toothache, Dental abscess Disposition: HOME SELF-CARE Condition: Stable Instructions (If sedation given, give patient instructions): Dental Abscess (ED) Additional Instructions: Please return to the Emergency Department if symptoms worsen or any other concerns. Prescriptions: Clindamycin HCl 300 mg PO Q6HR #40 cap Referrals: None,Stated [Primary Care Provider] - 1-2 days
[2020-12-05 11:55] VITALS: BP 117/80; PULSE 105; RESP 18; TEMP 97.8
[2020-12-05] MEDS ORDERED: cefTRIAXone 1,000 MG VIAL (IM USE) IM STA (12:20)
== END 2020-12-05 12:55 | disposition home or self-care (01) ==
LOC: EC 10:36
DX: K04.7 Periapical abscess without sinus (principal); I10 Essential (primary) hypertension; F41.9 Anxiety disorder, unspecified; F17.200 Nicotine dependence, unspecified, uncomplicated
CPT/HCPCS: 99283; 96372; J0696